=== PATIENT | male | born 1970 | race Asian ===

== ENCOUNTER 2017-11-13 01:22 | Emergency (ER) | payer OTHER ==
[~2017-11-13] VITALS: Ht 170.2 cm; Wt 104.3 kg
[2017-11-13 02:04] LABS: PLATELET COUNT 210 K/uL (142-355)
[2017-11-13 02:19] LABS: POTASSIUM 3.4 mmol/L (3.6-5.2)
[2017-11-13 03:43] VITALS: BP 183/86; TEMP 98.5
== END 2017-11-13 03:45 | disposition home or self-care (01) ==
LOC: ED 01:22
PROVIDERS: Family Medicine
DX: S46.912A Strain of unspecified muscle, fascia and tendon at shoulder and upper arm level, left arm, initial encounter (principal); M94.0 Chondrocostal junction syndrome [Tietze]; I45.81 Long QT syndrome; X50.0XXA Overexertion from strenuous movement or load, initial encounter
CPT/HCPCS: 80053; 82550; 84484; 85027; 93005; 99283

== ENCOUNTER → 2017-11-13 | Outpatient (CLI) | payer OTHER | END | disposition short-term general hospital (02) | LOC: AMB 00:58 | DX: R06.02 Shortness of breath (principal); R53.1 Weakness | CPT/HCPCS: A0425; A0429 ==

== ENCOUNTER 2018-04-12 07:49 | Outpatient (CLI) | payer OTHER | END 2018-04-12 16:50 | disposition home or self-care (01) | LOC: INF 07:49 | PROC: 30233N1 Transfusion of Nonautologous Red Blood Cells into Peripheral Vein, Percutaneous Approach (ICD-10-PCS; principal; 2018-04-12) | DX: D64.9 Anemia, unspecified (principal) | CPT/HCPCS: 36415; 36430; 85014; 85018; 86850; 86900; 86901; 86922; 96374; 96375; J1200; J2405; P9016 ==

== ENCOUNTER 2020-04-29 13:58 | Outpatient (CLI) | payer OTHER | END 2020-04-29 19:42 | disposition home or self-care (01) | LOC: LAB 13:58 | PROVIDERS: ATTEND Physician Assistant Medical | DX: D64.89 Other specified anemias (principal) | CPT/HCPCS: 85014; 85018 ==

== ENCOUNTER 2021-10-25 10:58 | Emergency (ER) | payer OTHER ==
[~2021-10-25] VITALS: Ht 170.2 cm; Wt 104.3 kg
[2021-10-25 11:02] VITALS: TEMP 97
[2021-10-25 11:45] VITALS: BP 190/99
== END 2021-10-25 11:45 | disposition home or self-care (01) ==
LOC: ED 10:58
DX: L03.012 Cellulitis of left finger (principal); I12.0 Hypertensive chronic kidney disease with stage 5 chronic kidney disease or end stage renal disease; N18.6 End stage renal disease; Z99.2 Dependence on renal dialysis
CPT/HCPCS: 96372; 99283; J0696; J1885

== ENCOUNTER 2022-03-09 07:46 | Outpatient (CLI) | payer OTHER | END 2022-03-09 19:29 | disposition home or self-care (01) | LOC: LAB 07:46 | PROVIDERS: ATTEND Physician Assistant Medical | DX: D64.9 Anemia, unspecified (principal) | CPT/HCPCS: 85018 ==

== ENCOUNTER → 2022-04-06 | Outpatient (CLI) | payer OTHER | LOC: LAB 14:01 | PROVIDERS: ATTEND Physician Assistant Medical | DX: N18.6 End stage renal disease (principal) | CPT/HCPCS: 85014; 85018 ==

== ENCOUNTER 2022-04-26 15:27 | Emergency (ER) | payer OTHER ==
[~2022-04-26] VITALS: Ht 170.2 cm; Wt 99.8 kg
[2022-04-26 15:55] LABS: PLATELET COUNT 159 K/uL (142-355)
[2022-04-26 16:05] LABS: POTASSIUM 3.6 mmol/L (3.6-5.2)
[2022-04-26 20:13] VITALS: BP 137/68; TEMP 98.2
== END 2022-04-26 20:15 | disposition short-term general hospital (02) ==
LOC: ED 15:27
PROVIDERS: Emergency Medicine
DX: R10.0 Acute abdomen (principal)
CPT/HCPCS: 80053; 83690; 85027; 93005; 96360; 96374; 96375; 99284; J2270; J2405; J3490; Q9963

== ENCOUNTER 2022-07-23 09:53 | Emergency (ER) | payer OTHER ==
[~2022-07-23] VITALS: Ht 170.2 cm; Wt 101.6 kg
[2022-07-23 09:53] VITALS: TEMP 97.5
[2022-07-23 10:30] LABS: PLATELET COUNT 151 K/uL (142-355)
[2022-07-23 10:46] LABS: POTASSIUM 3.5 mmol/L (3.6-5.2)
[2022-07-23 12:00] VITALS: BP 171/84
== END 2022-07-23 12:55 | disposition short-term general hospital (02) ==
LOC: ED 09:53
PROVIDERS: Emergency Medicine Emergency Medical Services
DX: I21.4 Non-ST elevation (NSTEMI) myocardial infarction (principal); N18.6 End stage renal disease; Z99.2 Dependence on renal dialysis; I10 Essential (primary) hypertension; F17.290 Nicotine dependence, other tobacco product, uncomplicated
CPT/HCPCS: 80053; 84484; 85027; 85379; 85610; 85730; 93005; 96360; 99284; Q9963

== ENCOUNTER 2022-08-08 08:56 | Emergency (ER) | payer OTHER ==
[~2022-08-08] VITALS: Ht 170.2 cm; Wt 90.7 kg
[2022-08-08 08:56] VITALS: TEMP 97.2
[2022-08-08 09:28] LABS: PLATELET COUNT 153 K/uL (142-355)
[2022-08-08 09:45] LABS: POTASSIUM 3.4 mmol/L (3.6-5.2)
[2022-08-08 11:06] VITALS: BP 154/69
== END 2022-08-08 11:06 | disposition short-term general hospital (02) ==
LOC: ED 08:56
PROVIDERS: Emergency Medicine Emergency Medical Services
DX: R07.89 Other chest pain (principal); I21.4 Non-ST elevation (NSTEMI) myocardial infarction; D64.89 Other specified anemias; N18.6 End stage renal disease; Z99.2 Dependence on renal dialysis
CPT/HCPCS: 36415; 80053; 83735; 84484; 85027; 85610; 86850; 86900; 86901; 86922; 93005; 96361; 96374; 96376; 99284; J0360; J1650

== ENCOUNTER 2022-09-27 12:20 | Emergency (ER) | payer OTHER ==
[~2022-09-27] VITALS: Ht 170.2 cm; Wt 99.8 kg
[2022-09-27 12:34] VITALS: BP 171/83; TEMP 97.9
[2022-09-27 13:26] LABS: POTASSIUM 3.4 mmol/L (3.6-5.2)
[2022-09-27 13:33] LABS: PLATELET COUNT 99 K/uL (142-355)
== END 2022-09-27 14:23 | disposition home or self-care (01) ==
LOC: ED 12:20
PROVIDERS: Family Medicine
DX: J18.8 Other pneumonia, unspecified organism (principal); N18.6 End stage renal disease; I10 Essential (primary) hypertension; F17.210 Nicotine dependence, cigarettes, uncomplicated; R06.02 Shortness of breath
CPT/HCPCS: 80053; 83880; 85027; 94664; 99283

== ENCOUNTER 2023-06-12 12:43 | Emergency (ER) | payer OTHER ==
[~2023-06-12] VITALS: Ht 167.6 cm; Wt 95.3 kg
[2023-06-12 13:18] LABS: PLATELET COUNT 137 K/uL (142-355)
[2023-06-12 13:42] LABS: PARTIAL THROMBOPLASTIN TIME 35.5 SECONDS (23.9-36.7)
[2023-06-12 14:10] LABS: POTASSIUM 3.4 mmol/L (3.6-5.2)
[2023-06-12 17:45] VITALS: BP 165/90; TEMP 98.3
== END 2023-06-12 17:45 | disposition short-term general hospital (02) ==
LOC: ED 12:43
PROVIDERS: Family Medicine
DX: R07.89 Other chest pain (principal); R06.02 Shortness of breath; I50.9 Heart failure, unspecified; R79.89 Other specified abnormal findings of blood chemistry; I11.0 Hypertensive heart disease with heart failure
CPT/HCPCS: 80053; 83880; 84484; 85027; 85610; 85730; 93005; 99283